=== PATIENT | female | born 2000 | race Two or more races ===

== ENCOUNTER 2022-11-17 20:48 | Emergency (ER) | payer OTHER ==
[~2022-11-17] VITALS: Ht 167.6 cm; Wt 86.2 kg
[2022-11-17] MEDS ORDERED: SINGULAIR10 MG PO (21:16)
[2022-11-17] MEDS ORDERED: XOPENEX CO1.25 MG/0. IH (21:48)
[2022-11-17] MEDS ORDERED: BUDESONIDE0.5 MG/2 M IH (21:48)
[2022-11-17] MEDS ORDERED: METAXALONE400 MG PO (21:48)
[2022-11-17] MEDS ORDERED: ADVIL DUAL ACT1 EACH PO (21:48)
== END 2022-11-17 22:00 | disposition home or self-care (01) ==
LOC: ER 20:48 → EMR PED 20:55
DX: J00 Acute nasopharyngitis [common cold] (principal); Z88.8 Allergy status to other drugs, medicaments and biological substances

== ENCOUNTER 2023-03-22 20:00 | Emergency (ER) | payer OTHER ==
[~2023-03-22] VITALS: Ht 167.6 cm; Wt 98.9 kg
[~2023-03-22 20:00] MED LIST: ADVIL DUAL ACT1 EACH PO; BUDESONIDE0.5 MG/2 M IH; METAXALONE400 MG PO; SINGULAIR10 MG PO; XOPENEX CO1.25 MG/0. IH
[2023-03-22] MEDS ORDERED: LITIUM (20:21)
[2023-03-22] MEDS ORDERED: CLONAZEPAM0.5 M1 PO (20:21)
== END 2023-03-23 01:37 | disposition home or self-care (01) ==
LOC: ER 20:00 → EMR PED 20:12
DX: M54.50 Low back pain, unspecified (principal); M43.06 Spondylolysis, lumbar region